=== PATIENT | male | born 1985 | race Two or more races ===

== ENCOUNTER 2020-02-18 14:31 | Emergency (ER) | payer SELFPAY ==
[2020-02-18] MEDS ORDERED: Diphtheria,Pertussis(Acell),Tetanus Vaccine 0.5 ML Syringe IM ONE (14:55)
[2020-02-18] MEDS ORDERED: Acetaminophen/HYDROcodone 325-5 MG Tab PO ONE (14:59)
--- NOTE | 2020-02-18 15:04 | EDM.PDOC ---
ED HPI GENERAL MEDICAL PROBLEM - General Chief Complaint: Skin Complaint Stated Complaint: SORE IN GROIN AREA Time Seen by Provider: 02/18/20 14:49 Source of Information: Reports: Patient History Limitations: Reports: No Limitations - History of Present Illness INITIAL COMMENTS - FREE TEXT/NARRATIVE: HISTORY AND PHYSICAL: History of present illness: Review of systems: As per history of present illness and below otherwise all systems reviewed and negative. Past medical history: As per history of present illness and as reviewed below otherwise noncontributory. Surgical history: As per history of present illness and as reviewed below otherwise noncontributory. Social history: See social history for further information Family history: As per history of present illness and as reviewed below otherwise noncontributory. Physical exam: General: HEENT: Atraumatic, normocephalic, pupils equal and reactive bilaterally, negative for conjunctival pallor or scleral icterus, mucous membranes moist, TMs normal bilaterally, throat clear, neck supple, nontender, trachea midline. No drooling or trismus noted. No meningeal signs. No hot potato voice noted. Lungs: Clear to auscultation, breath sounds equal bilaterally, chest nontender. Heart: S1S2, regular rate and rhythm without overt murmur Abdomen: Soft, nondistended, nontender. Negative for masses or hepatospleno megaly. Negative for costovertebral tenderness. Pelvis: Stable nontender. Genitourinary: Deferred. Rectal: Deferred. Skin: Intact, warm, dry. No lesions or rashes noted. Extremities: Atraumatic, moves all extremities per self without difficulty or deficits, negative for cords or calf pain. Neurovascular unremarkable. Neuro: Awake, alert, oriented. Cranial nerves II through XII unremarkable. Cerebellum unremarkable. Motor and sensory unremarkable throughout. Exam nonfocal. Notes: Supportive care measures were reviewed and discussed. Voices understanding and is agreeable to plan of care. Denies any further questions or concerns at this time. Diagnostics: Therapeutics: Prescription: Impression: Pilonidal Abscess Plan: 1. Take the antibiotic as we discussed. Keep the area clean and dry. Continue to monitor for signs of infection. The wick that is the abscess site needs to be pulled out in 1-2 days. Please return to the ED for re-evalution or follow up win the clinic as we discussed. 2. Avoid straining to have a bowel movement, may want to use Colace to keep stools soft. Tylenol and/or ibuprofen as needed for pain management. 3. Return to the ED as needed and as discussed. Definitive disposition and diagnosis as appropriate pending reevaluation and review of above. buttocks Pain Score (Numeric/FACES): 6 - Related Data Allergies Allergy/AdvReac Type Severity Reaction Status Date / Time No Known Allergies Allergy Verified 02/18/20 14:42 Home Meds: Home Meds Amoxicillin/Clavulanate K [Augmentin 875-125 MG] 1 tab PO BID 7 Days #14 tablet 02/18/20 [Rx] Ampicillin [[place]] mg PO DAILY 02/18/20 [History] metroNIDAZOLE [Flagyl] 500 mg PO Q12H 5 Days #10 tab 02/18/20 [Rx] Past Medical History - Past Health History Medical/Surgical History: Denies Medical/Surgical History - Infectious Disease History Infectious Disease History: Reports: None Social & Family History - Family History Family Medical History: Noncontributory - Tobacco Use Smoking Status *Q: Never Smoker - Caffeine Use Caffeine Use: Reports: Coffee - Recreational Drug Use Recreational Drug Use: No ED ROS GENERAL - Review of Systems Review Of Systems: Comprehensive ROS is negative, except as noted in HPI. ED EXAM, SKIN/RASH Exam: See Below (See dictation) Course - Vital Signs Last Recorded V/S: Last Vital Signs Temp 97.6 F 02/18/20 14:43 Pulse 84 02/18/20 14:43 Resp 18 02/18/20 14:43 BP 138/91 H 02/18/20 14:43 Pulse Ox 97 02/18/20 14:43 - Orders/Labs/Meds Orders: Active Orders 24 hr Category Date Time Status Vaccines to be Administered [RC] PER UNIT ROUTINE Care 02/18/20 14:57 Active Meds: Medications Discontinued Medications Generic Name Dose Route Start Last Admin Trade Name Freq PRN Reason Stop Dose Admin Hydrocodone Bitart/Acetaminophen 1 tab 02/18/20 14:59 [place] 325-5 Mg PO 02/18/20 15:00 ONETIME ONE Diphtheria/Tetanus/Acell Pertussis 0.5 ml 02/18/20 14:55 Adacel IM 02/18/20 14:56 .ONCE ONE Lidocaine HCl 5 ml 02/18/20 14:54 Xylocaine-Mpf 1% INJECT 02/18/20 14:55 ONETIME ONE Departure - Departure Time of Disposition: 15:40 Disposition: Home, Self-Care 01 Clinical Impression: Pilonidal abscess - Discharge Information Prescriptions: Amoxicillin/Clavulanate K [Augmentin 875-125 MG] 1 tab PO BID 7 Days #14 tablet metroNIDAZOLE [Flagyl] 500 mg PO Q12H 5 Days #10 tab Instructions: Pilonidal Cyst Drainage Referrals: PCP,None [Primary Care Provider] - Forms: ED Department Discharge Additional Instructions: The following information is given to patients seen in the emergency department who are being discharged to home. This information is to outline your options for follow-up care. We provide all patients seen in our emergency department with a follow-up referral. The need for follow-up, as well as the timing and circumstances, are variable depending upon the specifics of your emergency department visit. If you don't have a primary care physician on staff, we will provide you with a referral. We always advise you to contact your personal physician following an emergency department visit to inform them of the circumstance of the visit and for follow-up with them and/or the need for any referrals to a consulting specialist. The emergency department will also refer you to a specialist when appropriate. This referral assures that you have the opportunity for follow-up care with a specialist. All of these measure are taken in an effort to provide you with opt imal care, which includes your follow-up. Under all circumstances we always encourage you to contact your private physician who remains a resource for coordinating your care. When calling for follow-up care, please make the office aware that this follow-up is from your recent emergency room visit. If for any reason you are refused follow-up, please contact the [facility] at and asked to speak to the emergency department charge nurse. [facility] [address] [place] [id number] [facility] [address] [place] [id number] 1. Take the antibiotic as we discussed. Keep the area clean and dry. Continue to monitor for signs of infection. The wick that is the abscess site needs to be pulled out in 1-2 days. Please return to the ED for re-evalution or follow up win the clinic as we discussed. 2. Avoid straining to have a bowel movement, may want to use Colace to keep stools soft. Tylenol and/or ibuprofen as needed for pain management. 3. Return to the ED as needed and as discussed. Sepsis Event Note (ED) - Evaluation Sepsis Screening Result: No Definite Risk - Focused Exam Vital Signs: Vital Signs Temp Pulse Resp BP Pulse Ox 02/18/20 14:43 97.6 F 84 18 138/91 H 97 - My Orders Last 24 Hours: My Active Orders 02/18/20 14:57 Vaccines to be Administered [RC] PER UNIT ROUTINE - Assessment/Plan Last 24 Hours: My Active Orders 02/18/20 14:57 Vaccines to be Administered [RC] PER UNIT ROUTINE
== END 2020-02-18 15:55 | disposition home or self-care (01) ==
LOC: MW.ED 14:31
DX: L05.01 Pilonidal cyst with abscess (principal); Z23 Encounter for immunization
CPT/HCPCS: 90471; 90715; 99283; A9270; J2001; 99282